=== PATIENT | female | born 1960 | race Caucasian/White ===

== ENCOUNTER 2023-11-17 12:32 | Emergency (ER) | payer OTHER, SELFPAY ==
[2023-11-17 12:36] VITALS: BP 166/92; PULSE 75; RESP 16; TEMP 37.1; O2SAT 99
[2023-11-17 12:55] VITALS: BP 166/92; PULSE 75; RESP 16; TEMP 37.1; O2SAT 99
--- NOTE | 2023-11-17 13:28 | W.ED.GENAD ---
Discharge Plan Disposition Patient Disposition: Home Condition: Stable Discharge Details Clinical Impression: Breast mass, right Primary Care Provider: None,None ED Provider: Branden Snow Home Meds and New Rx's Prescriptions: No Action Allergy Capsule 1 tab PO DAILY PRN Discharge Instructions Additional Instructions: Please follow-up with general surgery clinic. You will need breast ultrasound and mammogram. Please follow-up with a primary care physician. Return to the ER immediately for any worsening or new concerning symptoms. Referrals: [facility] [Provider Group] [facility] [Provider Group] HPI General Mode of arrival: ambulatory. Date/Time Provider Initiated Documentation: 11/17/23 12:55. Limitations to Documentation: no limitations. Information obtained by: patient. HPI Narrative: 63yo female presents with chief complaint of breast mass. Patient states that she noticed some bruising of her right breast last week and upon palpation felt a lump that has persisted. Patient denies injury. She has no associated fever or chills. No recent mammogram. Related Data Home Medications ?Medication ?Instructions ?Recorded ?Confirmed Allergy Capsule 1 tab PO DAILY PRN 11/17/23 11/17/23 Allergies Allergy/AdvReac Type Severity Reaction Status Date / Time bacitracin (From Neosporin AdvReac Intermediate rash Unverified 11/17/23 12:41 ([id number])) bacitracin zinc (From AdvReac Intermediate rash Unverified 11/17/23 12:41 Neosporin ([id number])) neomycin sulfate (From AdvReac Intermediate rash Unverified 11/17/23 12:41 Neosporin ([id number])) polymyxin B (From Neosporin AdvReac Intermediate rash Unverified 11/17/23 12:41 ([id number])) General Stated Complaint: GenMedical ASHUTOSH: 3 Exam Const General: cooperative and no acute distress Chest Breast palpation: normal palpation of the axillae, no axillary lymphadenopathy and abnormal palpation of the breast (2:00 [id number] well circumscribed mass) Other: overlying bruising (exam performed with famle nurse Stephanie present) Resp Auscultation: clear to auscultation bilaterally, no rales, no rhonchi and no wheezes Cardio Rate: regular rate and not tachycardic Rhythm: regular rhythm Skin General skin exam: no rashes or lesions noted Course Vital Signs Vital signs: Vital Signs Temperature 37.1 C 11/17/23 12:36 Pulse 75 11/17/23 12:36 Respiratory Rate 16 11/17/23 12:36 Blood Pressure 166/92 H 11/17/23 12:36 Pulse Oximetry 99 11/17/23 12:36 Temperature 37.1 C 11/17/23 12:55 Pulse 75 11/17/23 12:55 Respiratory Rate 16 11/17/23 12:55 Respiratory Effort Normal, Non-Labored 11/17/23 13:04 Blood Pressure 166/92 H 11/17/23 12:55 Blood Pressure Position Sitting 11/17/23 12:55 Pulse Oximetry 99 11/17/23 12:55 Oxygen Delivery Method Room Air 11/17/23 12:55 Oxygen Flow Rate 0 11/17/23 12:55 Pain Level 0 11/17/23 12:55 Medical Decision Making 63yo female here with new breast mass since last week. No signs of infection. Patient does not have PCP. I called and spoke with Dr. Ibrahim, on-call general surgeon, discussed ED presentation course, she recommends mammogram and breast ultrasound and we will order these. Plan for outpatient follow-up. I will ask care management to help in establishing PCP. Patient would prefer [facility]. Quality:SDOH Health Related Social Needs: No Data to Display PFSH All Active Problems (Updated 11/17/23 @ 13:40 by Branden Snow MD) Breast mass, right (Acute) Surgical History (Updated 01/18/18 @ 14:35 by [employer] [place]) Oophrectomy, Right (~2008) with hyst Vaginal hysterectomy (~2008) LAVH for fibroids and prolapse Family History Mother GI bleed Father Lung cancer Sister Stroke Social History Smoking/Tobacco Use Status: Never Smoking risk assessment performed?: Yes Alcohol Intake: current Alcohol Intake frequency: 0-2 drinks per day Alcohol type: beer Drug use: Never Substance use type: does not use Do you feel safe at home: Yes Do you feel safe in your relationship?: Yes PAWSS Have you Been Recently Intoxicated or Drunk Within the Last 30 days?: No Have you Ever Experienced Previous Episodes of Alcohol Withdrawal?: No Have you ever Experienced Withdrawal Seizures?: No Have you ever Experienced Delirium Tremens(DT)s?: No Have you ever undergone Alcohol Rehabilitation Treatment (i.e, inpt ot outpatient treatment programs)?: No Have you ever Experienced Blackouts?: No Have you ever Combined Alcohol with other Downers within the last 90 days?: No Have you ever Combined Alcohol with any other Substance of Abuse during the last 90 days?: No Positive Blood Alcohol level on Presentation? [PCS.BAL]: Unable to Obtain Evidence of Increased Autonomic Activity (i.e. HR>120, tremor, sweating, agitation, nausea)?: No Result: 0
[2023-11-17 14:19] VITALS: BP 197/92; PULSE 62; RESP 12; O2SAT 98
== END 2023-11-17 14:19 | disposition home or self-care (01) ==
LOC: ER 14:40
PROVIDERS: Emergency Provider Student in an Organized Health Care Education/Training Program
DX: N63.20 Unspecified lump in the left breast, unspecified quadrant (principal)
CPT/HCPCS: 99284

== ENCOUNTER 2023-11-24 02:54 | Outpatient (CLI) | payer OTHER, SELFPAY ==
--- NOTE | 2023-11-24 08:48 | DI.US_ITS ---
Exam(s) US BREAST RT LIMITED MG MAMMO DIAGNOSTIC BI EXAM: MG MAMMO DIAGNOSTIC BI CLINICAL HISTORY: right breast mass,n63.10. COMPARISON: US US BREAST RT LIMITED from 11/24/2023 TECHNIQUE: Craniocaudal and mediolateral oblique Full Field Digital Mammography views of both breast s with Computer Aided Diagnosis followed by Tomosynthesis and right breast ultrasound. FINDINGS: Mammography/Tomosynthesis: Masses/Architectural Distortion: Smoothly marginated ovoid nodule measuring 2.3 x 1.7 by 2.4 cm noted in the medial right breast. No abnormality seen in the left breast. Microcalcifications: No suspicious pleomorphic-type are seen. Skin Thickening/Nipple Retraction: None. Right breast US: Echotexture: Normal appearance of the glandular tissue. Shadowing: No suspicious foci. Cyst: Ovoid cystic area measuring 2.8 x 1.1 x 2.7 cm in the medial right breast, 1 cm from the nipple . It contains some debris. No significant surrounding blood flow. Solid lesions: None seen. Ductal dilation: None. IMPRESSION: 1. No evidence of malignancy is noted. Palpable abnormality corresponds to a cystic area with debri s. 2. Unless there is more urgent need, follow-up screening mammography is recommended, as per [place] [employer] guidelines. BI-RADS Category 2 - Benign Findings Breast Density - Category C - Heterogeneously dense Breast density category C or D implies that the patient has dense breast tissue. Dense breast tissue is very common and is not abnormal but dense breast tissue can make it harder to find cancer on a ma mmogram. Also, dense breast tissue may increase their breast cancer risk. This information about the result of the mammogram report was provided to the patient to raise their awareness. Use this report when you speak with the patient about their risks for breast cancer, which includes their family hist ory. At that time, you may recommend for more screening tests (Ultrasound or MRI) as they might be us eful based on their risk. A negative radiographic report should not delay biopsy if a dominant or clinically suspicious mass is present. Up to ten percent of cancers are not identified on mammography. A negative report may reinforce clinical impression. Adenosis and dense breasts may obscure an underlying neoplasm. False positive reports average 6 to 10%. Patient will receive a letter notifying them of these results.
== END 2023-11-24 03:14 ==
LOC: DI 02:55
PROVIDERS: Visit Provider Surgery
DX: N63.13 Unspecified lump in the right breast, lower outer quadrant (principal); Z12.31 Encounter for screening mammogram for malignant neoplasm of breast
CPT/HCPCS: 76642; 77062; 77066; G0279

== ENCOUNTER 2024-04-05 04:14 | Outpatient (CLI) | payer OTHER, SELFPAY ==
[2024-04-05 12:36] LABS: HCT 43.9 % (36.0-46.0); HGB 13.9 g/dL (11.2-15.7); MCH 29.9 pg (27.0-33.0); MCHC 31.7 % (32.0-36.0); MCV 94 fL (80-95); MPV 10.6 fL (8.0-11.0); Platelet Count 263 10^3/uL (130-400); RBC 4.65 10^6/uL (3.93-5.22); RDW 12.7 % (11.7-14.6); RDW-SD 44.3 fL; WBC 7.15 10^3/uL (4.4-10.8)
[2024-04-05 13:29] LABS: Hemoglobin A1C 5.2 % (<5.7)
[2024-04-05 13:41] LABS: ALT 26 U/L (14-59); AST 21 U/L (15-37); Albumin 3.9 g/dL (3.4-5.0); Alkaline Phosphatase 75 U/L (46-116); Anion Gap 7.9 mmol/L (3-11); BUN 26 mg/dL (7-18); Bilirubin, Total 0.51 mg/dL (0.2-1.0); CO2 29.1 mmol/L (21.0-32.0); CREATININE 0.7 mg/dL (0.55-1.02); Calcium 8.8 mg/dL (8.5-10.1); Chloride 105 mmol/L (98-107); Estimated GFR 96.52 (mL/min/1.73m2); Glucose 95 mg/dL (74-106); Potassium 4.3 mmol/L (3.5-5.1); Sodium 142 mmol/L (136-145); TSH (W/Ref FT4) 2.86 uIU/mL (0.36-3.74); Total Protein 7.3 g/dL (6.4-8.2)
[2024-04-05 13:54] LABS: Calculated LDL 94 mg/dL (<100); Cholesterol 185 mg/dL (<200); HDL Cholesterol 80 mg/dL (40-60); Triglyceride 55 mg/dL (<150)
== END 2024-04-05 04:15 | disposition home or self-care (01) ==
LOC: LOS 04:14
PROVIDERS: PCP Nurse Practitioner Family; Visit Provider Nurse Practitioner Family
DX: Z00.00 Encounter for general adult medical examination without abnormal findings (principal)
CPT/HCPCS: 36415; 80053; 80061; 85027; 83036; 84443